=== PATIENT | male | born 1970 | race Caucasian/White ===

== ENCOUNTER → 2021-06-30 | Outpatient (CLI) | payer BC, OTHER ==
[~2021-06-30] MED LIST: DOXY100C2 PO; HYDR25CA92 GT; OMEP20TA2 PO; ONDAN4ODT PO
--- NOTE | 2021-06-30 12:24 | Diagnostic Imaging Report ---
PROCEDURE: CT abdomen and pelvis without contrast. TECHNIQUE: Multiple contiguous axial images were obtained through the abdomen and pelvis without the use of intravenous contrast. Auto Exposure Controls were utilized during the CT exam to meet ALARA standards for radiation dose reduction. INDICATION: Diverticulitis. No prior studies are available for comparison. The lung bases are clear. Liver and gallbladder are unremarkable. No mass is detected. There is no biliary duct dilatation. The pancreas and spleen are unremarkable. No adrenal mass is identified. The kidneys are without calculi or hydronephrosis. Aorta is nonaneurysmal. The small and large bowel loops are of normal caliber. There is no obstruction. No inflammatory changes are seen to suggest acute diverticulitis. There is no free fluid or fluid collection identified. The bladder is decompressed. There is some enlargement of prostate gland. Bony structures are nonacute. IMPRESSION: No CT evidence of acute diverticulitis. No acute feature seen. Mild prostatomegaly. Dictated by: Dictated on workstation # [id number]
== END ==
LOC: RAD 10:45
PROVIDERS: ATTEND Nurse Practitioner Family
DX: K57.32 Diverticulitis of large intestine without perforation or abscess without bleeding (principal)
CPT/HCPCS: 74176

== ENCOUNTER 2021-07-26 05:42 | Outpatient (CLI) | payer BC ==
[~2021-07-26] VITALS: Ht 185.4 cm; Wt 90.5 kg
== END 2021-07-26 13:06 | disposition home or self-care (01) ==
LOC: PREOP 05:42
PROVIDERS: ATTEND Surgery
DX: Z01.818 Encounter for other preprocedural examination (principal)

== ENCOUNTER 2021-08-02 07:52 | Day surgery (SDC) | payer BC ==
[~2021-08-02] VITALS: Ht 185 cm; Wt 90.5 kg
[2021-08-02] MEDS ORDERED: LACTATED RINGERS 1,000 ML IV STA (07:55)
[2021-08-02] MEDS ORDERED: LACTATED RINGERS 1,000 ML IV ONE (08:01)
[2021-08-02 08:15] VITALS: BP 124/85
--- NOTE | 2021-08-02 08:19 | Progress Note-Pre Operative ---
Pre-Operative Progress Note H&P Reviewed The H&P was reviewed, patient examined and no changes noted. Time Seen by Provider: 08:15 Date H&P Reviewed: Aug 02, 2021 Time H&P Reviewed: 08:15 Pre-Operative Diagnosis: SANDY Narayan DO Aug 02, 2021 08:19
[2021-08-02] MEDS ORDERED: PROPOFOL INJECTION 50 ML IV ONE ×2 (08:58→09:20)
[2021-08-02] MEDS ORDERED: MIDAZOLAM 2 MG/2 ML (VERSED) VIAL ONE (08:58)
[2021-08-02 09:30] VITALS: BP 86/57
[2021-08-02 09:35] VITALS: BP 87/57
--- NOTE | 2021-08-02 09:37 | Progress Note-Post Operative ---
Post-Operative Progess Note Surgeon (s)/Real Estate Leasing Agent (s) Surgeon SANDY MARCELINO DO Real Estate Leasing Agent: BREANA Combs Pre-Operative Diagnosis Screening Post-Operative Diagnosis Polyps int hemorrhoids Procedure & Operative Findings Date of Procedure 08/02/21 Procedure Performed/Findings Colon with snare Colon with cold biopsy PROCEDURE NOTE: After informed consent was obtained, the patient was brought to the endoscopy suite, placed in bed in left lateral decubitus position. He was administered IV sedation by the BOTTOMING MACHINE OPERATOR who then monitored his vitals the entire time, heart rate, blood pressure and pulse ox and the scope was inserted. On the way in a polyp was seen in the Sigmoid colon; attempted to snare, but unable and so did a cold biopsy. Able to remove it completely. Then pushed in a little ways more and saw another polyp in the Descending colon; also small and flat, did another cold biopsy. Finally pushed about 150 cm in and got into the cecum, took a picture of appendiceal orifice. In the Cecum found a large flat polyp, elected to do a hot snare to completely remove it. It was so large it wouldn't suction up, had to put in the polyp net and grasp it. Then slowly withdrew the scope insufflating to look circumferentially at the douglas starting in the cecum, up the ascending colon to the hepatic flexure, then down the transverse colon, splenic flexure, into the descending colon. Saw another polyp so had to pull the scope completely out to get the net and polyp out. Then pushed back in and did another snare polypectomy in the descending colon. Finally down into the sigmoid and then into the rectal vault and retroflexed the scope. Took a picture of the internal hemorrhoids. The patient tolerated the procedure. He was recovered in endoscopy suite. Will need repeat colonoscopy in 3 years because of the 4 polyps. Anesthesia Type IV sedation by BOTTOMING MACHINE OPERATOR Estimated Blood Loss Estimated blood loss (mL): scant Specimens/Packing Specimens Removed desc colon polyp x 2 Cecal polyp sigmoid polyp SANDY MARCELINO DO Aug 02, 2021 09:37
--- NOTE | 2021-08-02 09:39 | Endoscopy Discharge Instruct ---
Endo Procedure/Findings Findings 1.: Polyp 2.: Internal Hemorrhoids Discharge Instructions - Activity: You might feel a little sleepy until tomorrow. This is due to the medicine you received to relax you. Until tomorrow, you should: NOT drive a car, operate machinery or power tools. NOT drink any alcoholic beverages. NOT make any important decisions or sign importortant papers. Do not return to work until tomorrow, unless otherwise instructed. Resume previous activities tomorrow. Diet: Start by taking liquids. If you tolerate liquids, advance to solid food. 1.: Colonscopy in 3 years Notify Physician - If you experience excessive bleeding, unusual abdominal pain, fever, or chest pain, contact your doctor immediately. SANDY MARCELINO DO Aug 02, 2021 09:39
[2021-08-02 09:43] VITALS: BP 84/56
[2021-08-02 09:50] VITALS: BP 98/55
[2021-08-02 10:06] VITALS: BP 100/62
--- NOTE | 2021-08-02 11:39 | Anesthesia-General Post-Op ---
MAC Patient Condition Mental Status/LOC: Same as Preop Cardiovascular: Satisfactory Nausea/Vomiting: Absent Respiratory: Satisfactory Pain: Controlled Complications: Absent Post Op Complications Complications None Follow Up Care/Instructions Patient Instructions None needed. Anesthesiology Discharge Order Discharge Order Patient is doing well, no complaints, stable vital signs, no apparent adverse anesthesia problems. No complications reported per nursing. GABRIELA BATISTA CRNA Aug 02, 2021 11:39
== END 2021-08-02 10:10 | disposition home or self-care (01) ==
LOC: ENDO 07:52
PROVIDERS: ATTEND Surgery
DX: D12.0 Benign neoplasm of cecum (principal); K59.00 Constipation, unspecified; K64.8 Other hemorrhoids; F17.210 Nicotine dependence, cigarettes, uncomplicated; R19.7 Diarrhea, unspecified; Z87.19 Personal history of other diseases of the digestive system

== ENCOUNTER 2022-08-18 05:32 | Outpatient (CLI) | payer OTHER ==
[~2022-08-18] VITALS: Ht 185.2 cm; Wt 99.3 kg
== END 2022-08-18 15:21 | disposition home or self-care (01) ==
LOC: PREOP 05:32
PROVIDERS: ATTEND Surgery
DX: Z01.818 Encounter for other preprocedural examination (principal)